=== PATIENT | male | born 1980 | race Caucasian/White ===

== ENCOUNTER 2020-10-28 20:05 | Day surgery (SDCO) | payer OTHER ==
[~2020-10-28 20:05] MED LIST: BACTRIM DS TAB1 EACH PO; JANUMET 50-5001 EACH PO; NOVOLOG FL100 UNIT/1 SC; PRINIVIL20 MG PO; TOUJEO MAX300 UNIT/1 SC
[2020-10-28 22:10] LABS: BASOPHIL 0.8 % (0-2); EOSINOPHIL 2.2 % (0-5); HCT 30.2 % (42.0-52.0); HGB 9.9 g/dl (13.2-18.0); LYMPHOCYTE 17.7 % (15-48); MCH 32.5 pg (25.0-31.0); MCHC 32.8 g/dL (32.0-36.0); MONOCYTE 7.9 % (0-12); MPV 11.8 fL (6.0-9.5); NRBC 0; PLT 259 K/uL (150-400); RBC 3.05 M/uL (4.70-6.00); RDW 13.4 % (11.5-14.0); WBC 9.6 K/uL (4.0-10.5)
[2020-10-28 22:16] LABS: ALBUMIN 2.7 g/dL (3.4-5.0); BILIRUBIN - DIRECT 0.1 mg/dL (0.00-0.20); BILIRUBIN - TOTAL 0.4 mg/dL (0.2-1.0); BUN/CREAT RATIO (CALC) 23.7 RATIO; CREATININE 1.31 mg/dL (0.67-1.17); GLOBULIN (CALCULATION) 4.3 g/dL
[2020-10-28 22:24] LABS: PRO-BNP 244 pg/mL (<125)
[2020-10-28 23:15] LABS: BILIRUBIN NEGATIVE (NEGATIVE); BLOOD 1+ Ery/uL (NEGATIVE); CLARITY CLEAR (CLEAR); GLUCOSE (U) TRACE mg/dL (NORMAL); LEUKOCYTES NEGATIVE Leu/uL (NEGATIVE); NITRITE NEGATIVE (NEGATIVE); PROTEIN 2+ mg/dL (NEGATIVE); SPECIFIC GRAVITY 1.015 (1.001-1.030); UROBILINOGEN 0.2 mg/dL (0.2-1.0)
[2020-10-28 23:17] LABS: COLOR STRAW (YELLOW)
[2020-10-28 23:24] LABS: YEAST PRESENT
[2020-10-29 00:39] LABS: CORONAVIRUS 2019 SARS-COV-2 NEGATIVE (NEGATIVE); INFLUENZA A NAA NEGATIVE (NEGATIVE)
[2020-10-29] MEDS ORDERED: COZAAR100 MG PO (01:26)
[2020-10-29] MEDS ORDERED: LIPITOR40 MG PO (01:26)
[2020-10-29] MEDS ORDERED: NORVASC5 MG PO (01:26)
[2020-10-29] MEDS ORDERED: HCTZ25 MG PO (01:26)
[2020-10-29] MEDS ORDERED: TRESIBA FL100 UNIT/1 SC (01:28)
[2020-10-29] MEDS ORDERED: HUMALOG 75100 UNIT/M SC (01:29)
[2020-10-29 06:19] LABS: BASOPHIL 0.7 % (0-2); EOSINOPHIL 2.6 % (0-5); HCT 29.2 % (42.0-52.0); HGB 9.7 g/dl (13.2-18.0); LYMPHOCYTE 20.5 % (15-48); MCH 32.7 pg (25.0-31.0); MCHC 33.2 g/dL (32.0-36.0); MCV 98.3 fL (78.0-100.0); MONOCYTE 8.7 % (0-12); MPV 11.4 fL (6.0-9.5); NEUTROPHIL 67.2 % (41-80); NRBC 0; PLT 261 K/uL (150-400); RBC 2.97 M/uL (4.70-6.00); RDW 13.4 % (11.5-14.0); WBC 8.7 K/uL (4.0-10.5)
[2020-10-29 06:59] LABS: BUN/CREAT RATIO (CALC) 20.3 RATIO; CREATININE 1.33 mg/dL (0.67-1.17); FOLIC ACID (SERUM) 11.3 ng/mL (8.6-58.9); POTASSIUM 3.9 mmol/L (3.5-5.1)
[2020-10-29 07:23] LABS: IRON % SATURATION 23.4 %SAT (20-50)
[2020-10-29 12:14] LABS: RETICULOCYTE COUNT 1.6 % (1.0-2.0)
[2020-10-29 12:28] LABS: IRON % SATURATION 23.2 %SAT (20-50)
[2020-10-29 12:55] LABS: FOLIC ACID (SERUM) 12.2 ng/mL (8.6-58.9)
[2020-10-29] MEDS ORDERED: FEOSOL325 MG PO (13:13)
[2020-10-29] MEDS ORDERED: VITAMIN B-121000 MC1 PO (13:13)
[2020-10-29] MEDS ORDERED: LASIX40 MG PO (14:00)
--- NOTE | 2020-10-29 14:42 | NUR ---
PT DC'D WITH AT BEDSIDE. PT IV 20 LAC DC'D ALONG WITH TELE DC'D. PT TOOK ALL PERSONAL BELONGINGS.
== END 2020-10-29 14:43 | disposition home or self-care (01) ==
LOC: FER 20:05 → FTCU 10-29 00:12
PROVIDERS: Emergency Medicine Emergency Medical Services; Nurse Practitioner; ADMIT Internal Medicine
DX: J81.0 Acute pulmonary edema (principal); E11.65 Type 2 diabetes mellitus with hyperglycemia; D50.9 Iron deficiency anemia, unspecified; E78.5 Hyperlipidemia, unspecified; I12.9 Hypertensive chronic kidney disease with stage 1 through stage 4 chronic kidney disease, or unspecified chronic kidney disease; E11.22 Type 2 diabetes mellitus with diabetic chronic kidney disease; N18.2 Chronic kidney disease, stage 2 (mild); E66.3 Overweight; Z68.38 Body mass index [BMI] 38.0-38.9, adult; Z86.16 Personal history of COVID-19; Z87.891 Personal history of nicotine dependence; Z79.4 Long term (current) use of insulin; Z79.899 Other long term (current) drug therapy; Z91.11 Patient's noncompliance with dietary regimen; Z91.14 Patient's other noncompliance with medication regimen; Z20.822 Contact with and (suspected) exposure to COVID-19
CPT/HCPCS: 36415; 71046; 71275; 80048; 80076; 81001; 82550; 82553; 82607; 82728; 82746; 82962; 83540; 83550; 83880; 84484; 85025; 85379; 93005; 94640; G0378; J1650; J1815; J1940; Q9967; U0002

== ENCOUNTER 2021-01-13 20:38 | Day surgery (SDCO) | payer OTHER ==
[~2021-01-13] VITALS: Ht 177.8 cm; Wt 119.9 kg
[~2021-01-13 20:38] MED LIST changes: +COZAAR100 MG PO; +FEOSOL325 MG PO; +HCTZ25 MG PO; +HUMALOG 75100 UNIT/M SC; +LASIX40 MG PO; +LIPITOR40 MG PO; +NORVASC5 MG PO; +TRESIBA FL100 UNIT/1 SC; +VITAMIN B-121000 MC1 PO
[2021-01-13 21:53] LABS: BASOPHIL 0.8 % (0-2); EOSINOPHIL 1.6 % (0-5); HCT 34.8 % (42.0-52.0); HGB 11.9 g/dl (13.2-18.0); LYMPHOCYTE 19.7 % (15-48); MCH 32.6 pg (25.0-31.0); MCHC 34.2 g/dL (32.0-36.0); MCV 95.3 fL (78.0-100.0); MPV 11.4 fL (6.0-9.5); NEUTROPHIL 70.5 % (41-80); NRBC 0; PLT 279 K/uL (150-400); RBC 3.65 M/uL (4.70-6.00); RDW 12.8 % (11.5-14.0); WBC 10.1 K/uL (4.0-10.5)
[2021-01-13 22:11] LABS: ALBUMIN 2.8 g/dL (3.4-5.0); BILIRUBIN - TOTAL 0.2 mg/dL (0.2-1.0); BUN/CREAT RATIO (CALC) 22.2 RATIO; CREATININE 1.85 mg/dL (0.67-1.17); GLOBULIN (CALCULATION) 4.4 g/dL; POTASSIUM 4.5 mmol/L (3.5-5.1); TOTAL PROTEIN 7.2 g/dL (6.4-8.2)
[2021-01-14 06:07] LABS: BASOPHIL 0.8 % (0-2); EOSINOPHIL 2.3 % (0-5); HGB 11.2 g/dl (13.2-18.0); LYMPHOCYTE 21.4 % (15-48); MCH 32.4 pg (25.0-31.0); MCHC 33.9 g/dL (32.0-36.0); MCV 95.4 fL (78.0-100.0); MONOCYTE 9.1 % (0-12); MPV 11.6 fL (6.0-9.5); NEUTROPHIL 65.9 % (41-80); NRBC 0; PLT 263 K/uL (150-400); RBC 3.46 M/uL (4.70-6.00); RDW 12.9 % (11.5-14.0); WBC 9.9 K/uL (4.0-10.5)
[2021-01-14 06:15] LABS: ALBUMIN 2.4 g/dL (3.4-5.0); BILIRUBIN - TOTAL 0.2 mg/dL (0.2-1.0); BUN/CREAT RATIO (CALC) 23.5 RATIO; CREATININE 1.7 mg/dL (0.67-1.17); GLOBULIN (CALCULATION) 4.1 g/dL; POTASSIUM 4.4 mmol/L (3.5-5.1); TOTAL PROTEIN 6.5 g/dL (6.4-8.2)
[2021-01-14] MEDS ORDERED: ASPIRIN EC81 MG PO (14:44)
[2021-01-14] MEDS ORDERED: TOPROL XL 50 MG50 MG PO (14:49)
[2021-01-14] MEDS ORDERED: NORVASC5 MG PO (16:34)
== END 2021-01-14 15:40 | disposition home or self-care (01) ==
LOC: FER 20:38 → FMS 22:30
PROVIDERS: Emergency Medicine; Nurse Practitioner; ADMIT Internal Medicine
DX: G45.9 Transient cerebral ischemic attack, unspecified (principal); I12.9 Hypertensive chronic kidney disease with stage 1 through stage 4 chronic kidney disease, or unspecified chronic kidney disease; E11.22 Type 2 diabetes mellitus with diabetic chronic kidney disease; N18.9 Chronic kidney disease, unspecified; N17.9 Acute kidney failure, unspecified; E78.5 Hyperlipidemia, unspecified; E78.00 Pure hypercholesterolemia, unspecified; E66.3 Overweight; Z68.37 Body mass index [BMI] 37.0-37.9, adult; Z87.891 Personal history of nicotine dependence; Z79.4 Long term (current) use of insulin; Z79.899 Other long term (current) drug therapy; Z20.822 Contact with and (suspected) exposure to COVID-19
CPT/HCPCS: 36415; 70450; 70551; 71045; 80053; 80061; 82962; 83036; 84484; 85025; 93005; 93880; 94010; G0378; J1815; J7030; U0002